=== PATIENT | female | born 1960 | race Two or more races ===

== ENCOUNTER 2024-02-01 10:14 | Emergency (ER) | payer OTHER ==
[~2024-02-01] VITALS: Ht 167.6 cm; Wt 108.4 kg
[2024-02-01] MEDS ORDERED: SYNTHROID137 MCG PO (11:02)
[2024-02-01] MEDS ORDERED: TETANUS & DIPHTHERIA TOX,ADULT 0.5 ML VIAL IM STA (12:15)
[2024-02-01] MEDS ORDERED: CEFTRIAXONE SODIUM 1,000 MG VIAL IM STA (12:15)
[2024-02-01] MEDS ORDERED: KETOROLAC TROMETHAMINE 15 MG VIAL IM STA (12:18)
[2024-02-01] MEDS ORDERED: CEPHALEXIN500 MG PO (13:35)
[2024-02-01] MEDS ORDERED: ADVIL DUAL ACT1 EACH PO (13:35)
== END 2024-02-01 14:44 | disposition home or self-care (01) ==
LOC: ER 10:15
DX: L08.9 Local infection of the skin and subcutaneous tissue, unspecified (principal); W54.0XXA Bitten by dog, initial encounter; E03.8 Other specified hypothyroidism; Z88.0 Allergy status to penicillin